=== PATIENT | female | born 1975 | race African-American/Black ===

== ENCOUNTER → 2016-05-05 | Outpatient (CLI) | payer OTHER ==
[~2016-05-05] MED LIST: FLEXERIL PO; NO MEDICATIONS; ORUDIS75 M1 DOB; ORUDIS75 M1 PO; PENICILLIN; PENICILLIN PO; TYLENOL #3 PO
--- NOTE | ~2016-05-05 | CR173 ---
[facility] A Service of [facility] & [facility] RADIOLOGY TEXT RESULTS PATIENT: GAIL SANDOVAL LOCATION: [facility] : 73 UNIT #: [id number] AGE: [address]: KAROL LEBLANC SEX: F ORDER DR: [id number] [facility] [address] [place], [place] [address] [id number] O MR#: [id number] Acc #: [id number] NAME: GAIL SANDOVAL : 1975 SEX: F STUDY DATE/TIME: 05/05/2016 12:25 UNIT: [facility] ROOM: STUDY DESCRIPTION: CR Knee 3 Views Rt Attending Physician: Dru Escobar Referring Physician: Dru Escobar Ordering Physician: Ying Baird M.D. Primary Care Physician: Ying Baird M.D. MEDICAL IMAGING REPORT This report is preliminary unless electronic signature is present EXAM Right knee 3 views, 05/05/2016 HISTORY Right knee pain for 3 days with no known injury. FINDINGS AP and lateral projection of the knee shows smooth articular anatomy without indication of fracture or dislocation at the major weight-bearing surface of the knee. There is no indication of radiopaque foreign body about the knee surface or joint effusion. IMPRESSION Normal knee. Dictated by... Alexander De La Torre M.D. THIS IS AN ELECTRONICALLY VERIFIED REPORT Alexander De La Torre M.D. at 05/06/2016 6:07 AM SONU/vineet TD: 05/06/2016 04:13 JOB #: [id number] MEDICAL IMAGING REPORT COPY
== END | disposition home or self-care (01) ==
LOC: CRAD 11:35
DX: M25.561 Pain in right knee (principal)
CPT/HCPCS: 73562

== ENCOUNTER → 2016-10-08 | Outpatient (CLI) | payer OTHER ==
--- NOTE | ~2016-10-08 | MR182 ---
[facility] A Service of [facility] & [facility] RADIOLOGY TEXT RESULTS PATIENT: GAIL SANDOVAL LOCATION: [facility] : 73 UNIT #: [id number] AGE: [address]: Tammy Dickey SEX: F ORDER DR: [id number] [place] [id number] [facility]. [place], [place] [address] [id number] O MR#: [id number] Acc #: [id number] NAME: GAIL SANDOVAL : 1975 SEX: F STUDY DATE/TIME: 10/08/2016 11:37 UNIT: [facility] ROOM: STUDY DESCRIPTION: MR Tibia and Fibula Wo Cont Rt Attending Physician: Tammy Dickey P.A.-C. Referring Physician: Tammy Dickey P.A.-C. Ordering Physician: Tammy Dickey P.A.-C. Primary Care Physician: Ying Baird M.D. MRI CENTER REPORT This report is preliminary unless electronic signature is present. EXAM MRI of the right lower leg without contrast HISTORY 41-year-old female with anterior jeff pain for as long as 5 years. No specific trauma. No focal swelling or warmth. Clinical concern for jeff splints or stress fracture. COMPARISON Right knee films 05/05/2016 FINDINGS Multiplanar, multiecho imaging was performed of the right lower leg utilizing a high-field magnet and dedicated protocol. Tibia and fibula appear normal, without focal marrow edema. No evidence of underlying periostitis. A gel capsule was placed along the anterior knee, in the area of clinical concern. There is a small amount of nonspecific pretibial edema within the subcutaneous space, but no defined fluid collection or hematoma. Lower leg musculature appears normal. The visualized neurovascular structures appear normal. IMPRESSION 1. No findings to suggest stress reaction or jeff splints in the lower leg. 2. Small amount of nonspecific pretibial soft tissue edema of doubtful clinical significance. Visualized vascular structures and musculature are also unremarkable. Dictated by... Chandan Suarez M.D. THIS IS AN ELECTRONICALLY VERIFIED REPORT [facility] A Service of [facility] & [facility] RADIOLOGY TEXT RESULTS PATIENT: GAIL SANDOVAL LOCATION: [facility] : 73 UNIT #: [id number] AGE: [address]: Tammy Dickey SEX: F ORDER DR: Chandan Suarez M.D. at 10/10/2016 4:50 PM DRAGAN/jigna TD: 10/09/2016 02:56 JOB #: [id number] MRI CENTER REPORT Page 1 of 1 COPY
== END | disposition home or self-care (01) ==
LOC: CMRI 11:00
DX: M79.661 Pain in right lower leg (principal); R60.0 Localized edema
CPT/HCPCS: 73718